=== PATIENT | female | born 1945 | race Caucasian/White ===

== ENCOUNTER → 2016-08-30 | Outpatient (CLI) | payer MEDICARE, BC ==
--- NOTE | ~2016-08-30 | MY11 ---
[facility] A Service of [place] [facility] RADIOLOGY TEXT RESULTS PATIENT: LIZ EVANS LOCATION: [facility] : 43 UNIT #: [id number] AGE: [address]: Giovanni Charles MD SEX: F ORDER DR: [id number] [facility] [address] [place], [place] [address] [id number] O MR#: [id number] Acc #: [id number] NAME: LIZ EVANS : 1945 SEX: F STUDY DATE/TIME: 08/30/2016 8:08 UNIT: [facility] ROOM: STUDY DESCRIPTION: MY Mammogram Screening Dig [place] Attending Physician: Giovanni Charles M.D. Referring Physician: Giovanni Charles M.D. Ordering Physician: Giovanni Charles M.D. Primary Care Physician: Giovanni Charles M.D. MEDICAL IMAGING REPORT This report is preliminary unless electronic signature is present EXAM Digital screening mammogram 08/30/2016. [facility] HISTORY 70-year-old woman no risk elevation. Annual screening. COMPARISON: Mammograms date to 05/21/2006 with most recent 08/28/2015 FINDINGS Digital imaging of each breast was completed utilizing screening protocol. Review again includes FDA-approved CAD device. Breast parenchyma is partially fatty replaced. Small circumscribed nodule again projects inner hemisphere left breast anterior third. It is well circumscribed and extremely dense which I believe reflects some calcification within the a benign cyst. It is stable to less conspicuous and certainly smaller than noted on the more remote mammograms. There is no interval occurring breast mass. I see no suspicious microcalcifications and no architectural disturbance. IMPRESSION Benign mammogram. Annual screening recommended. BIRADS 2 Patients over the age of 40 are entered into a reminder system with target due date for the next mammogram. A result letter will also be sent to the patient. BIRADS: 2 - benign findings Dictated by... Beck Brandt M.D. [facility] A Service of [facility] RADIOLOGY TEXT RESULTS PATIENT: LIZ EVANS LOCATION: [facility] : 43 UNIT #: [id number] AGE: [address]: Giovanni Charles MD SEX: F ORDER DR: THIS IS AN ELECTRONICALLY VERIFIED REPORT Beck Brandt M.D. at 08/31/2016 1:24 PM [place] TD: 08/30/2016 10:26 JOB #: [id number] MEDICAL IMAGING REPORT Page 1 of 1 COPY
== END | disposition home or self-care (01) ==
LOC: CWCC 07:51
DX: Z12.31 Encounter for screening mammogram for malignant neoplasm of breast (principal)
CPT/HCPCS: G0202